=== PATIENT | male | born 1955 | race Caucasian/White ===

== ENCOUNTER 2017-03-06 09:46 | Emergency (ER) | payer OTHER ==
[~2017-03-06] VITALS: Ht 193 cm; Wt 106.1 kg
[2017-03-06] MEDS ORDERED: LISINOPRIL20 MG PO (10:07)
[2017-03-06] MEDS ORDERED: PANTOPRAZOLE SO20 MG PO (10:08)
[2017-03-06] MEDS ORDERED: HYDROCHLOROTH12.5 M3 PO (10:08)
[2017-03-06] MEDS ORDERED: CLONAZEPAM2 MG PO (10:09)
[2017-03-06 10:53] LABS: EOSINOPHIL (%) 2.9 % (0-5); EOSINOPHIL COUNT 0.1 K/uL (0-0.3); HEMATOCRIT 48.7 % (38.0-50.0); IMMATURE GRANULOCYTE (%) 0.4 % (0.0-0.7); INSTRUMENT ABS NEUTROPHIL CT 2.5 K/uL; LYMPHOCYTE COUNT 1.4 K/uL (1.0-2.8); MCH 29.3 PG (29.0-34.0); MCHC 33.7 G/DL (30.0-36.0); MEAN PLAT.VOLUME 9.4 uM^3 (9.0-12.4); MONOCYTE (%) 11.6 % (3-12); MONOCYTE COUNT 0.5 K/uL (0-0.8); NEUTROPHIL (%) 54.7 % (45-76); NEUTROPHIL COUNT 2.5 K/uL (1.8-6.4); PLATELET COUNT 200 K/uL (156-360); RBC DIS.WIDTH-SD 41.1 % (39-53); WHITE BLOOD COUNT 4.6 K/uL (4.1-10.2)
[2017-03-06 11:03] LABS: CHLORIDE 107 mEq/L (99-109); D-DIMER ELISA 0.25 mg/L FEU (< 0.57); POTASSIUM 4.2 mEq/L (3.7-5.4); SODIUM 142 mEq/L (136-147)
[2017-03-06 11:05] LABS: GLUCOSE 96 mg/dL (70-99)
[2017-03-06 11:06] LABS: ANION GAP 8 MEQ/L (2-14)
[2017-03-06 11:07] LABS: TOTAL BILIRUBIN 1.1 mg/dL (0.0-1.0)
[2017-03-06 11:09] LABS: ALKALINE PHOSPHATASE 50 IU/L (3-129); GFR ESTIMATE (CALCULATED) > 59 mL/min/
[2017-03-06 11:10] LABS: UREA NITROGEN (BUN) 15 mg/dL (9-23)
[2017-03-06 11:13] LABS: TROP-I INTERPRETATION NEGATIVE; TROPONIN-I < 0.01 ng/mL (0.0-0.30)
[2017-03-06] MEDS ORDERED: NORCO 5/3251 TABLET PO (13:17)
[2017-03-06] MEDS ORDERED: MOTRIN600 MG PO (13:17)
[2017-03-06 13:21] VITALS: BP 123/81
== END 2017-03-06 14:06 | disposition home or self-care (01) ==
LOC: EME 09:46
PROVIDERS: Emergency Medicine
DX: R07.89 Other chest pain (principal)
CPT/HCPCS: 71020; 71275; 80053; 84484; 85025; 85379; 93005; 99281; 99285; J7030